=== PATIENT | male | born 1930 | race Caucasian/White ===

== ENCOUNTER 2016-04-15 14:47 | Inpatient (IN) | payer OTHER ==
--- NOTE | 2016-04-15 14:54 | EDPHY ---
H & P Time Seen by Provider: 04/15/16 14:53 HPI/ROS: CHIEF COMPLAINT: Chest pain. HISTORY OF PRESENT ILLNESS: The patient is an 85-year-old male who presents with intermittent left-sided chest pain for the past 2 months. Episodes last for a few minutes at a time and the pain is described as aching. The pain has been worse recently than usual. He denies alleviating or provoking factors. Today he had the first episode of pain at 0930 this morning and the latest episode started a few minutes ago. Pain is non-radiating. No fever, chills, shortness of breath, palpitations, vomiting, diarrhea, urinary complaints, headache, lightheadedness. On initial presentation to the ED, patient reports he has no medical problems and takes no medicine. A friend who was present states he has diabetes, but patient denies. PMH as outlined below from [facility] records REVIEW OF SYSTEMS: Full review of systems was negative except as described above. However, patient is an unreliable historian. PAST MEDICAL HISTORY: Diabetes, Stage III Kidney Disease, dementia, hemochromatosis, hypertension, prostate cancer, hyperlipidemia. SOCIAL HISTORY: Lives in [place], nonsmoker, moderate daily alcohol use. VITAL SIGNS: Reviewed by me GENERAL: Elderly, pleasant, resting comfortably in no respiratory distress. HEENT: Atraumatic. Eyes: No icterus, no injection. Mouth: moist mucous membranes. No erythema or lesions. Neck: supple with no adenopathy. LUNGS: Clear to auscultation bilaterally, no wheezes, rhonchi or rales. CARDIAC: Slightly irregular rhythm with occasional PVCs on monitor. no rubs, murmurs or gallops. ABDOMEN: Soft, nontender, nondistended, bowel sounds normal. BACK: No CVA tenderness. EXTREMITIES: No trauma. No edema. Range of motion is normal throughout. NEURO: Alert and oriented, grossly nonfocal. SKIN: Warm and dry, no rash. PSYCHIATRIC: Normal mentation, no agitation. Portions of this note were transcribed by a medical claims manager. I personally performed a history, physical exam, medical decision making, and confirmed accuracy of information the transcribed note. Source: Patient Exam Limitations: No limitations Constitutional: Initial Vital Signs Temperature (C) 36.4 C 04/15/16 15:08 Heart Rate 110 H 04/15/16 15:08 Respiratory Rate 18 04/15/16 15:08 Blood Pressure 185/99 H 04/15/16 15:08 O2 Sat (%) 95 04/15/16 15:08 O2 Delivery Mode Room Air Allergies/Adverse Reactions: No Known Allergies Allergy (Unverified 04/15/16 15:08) Home Medications: Medication Instructions Recorded Insulin NPH Hum/Reg Insulin Hm 25 unit SC DAILY 04/15/16 [Humulin 70-30 Vial] Medical Decision Making - Diagnostics EKG Interpretation: 12-LEAD EKG: Please see the full report in [facility]. My interpretation: Normal sinus rhythm with right bundle branch block. This is changed from his previous EKG as described by the [facility] at [facility]. Imaging: X-ray of the chest was obtained. I viewed the images myself on the PACS system. My interpretation of the images is: No pneumonia. No explanation for chest pain. The radiologist interpretation is pending at this time. I discussed the x-ray findings with the patient. ED Course/Re-evaluation: An IV was established and labs ordered. Chest x-ray, EKG obtained. 1513: I spoke to [facility] about this patient. They tell me he has a history of diabetes, Stage III kidney disease, dementia, hemochromatosis, hypertension, prostate cancer, and hyperlipidemia. They also tell me that the right bundle branch block seen on his EKG today is different than previous and they will fax his previous EKG to us. 1632: Spoke with [facility]. They tell me the patient last saw his doctor in July and has been picking up his medications as scheduled. They are comfortable with the patient being admitted here in the [facility]. Patient admitted to ICU to evaluate complaints of chest pain in the setting of DKA requiring insulin drip. Also will need close social service and shoe parts caser input, as it is unclear to me how the patient is managing on his own at home. Of concern, patients labs demonstrate a anion gap acidosis and a non-ion gap acidosis. Likely a DKA component to the patients electrolyte abnormalities. Insulin administered as well as fluid. Patient started on the DKA protocol. Differential Diagnosis: After history and physical examination, the differential for chest pain was considered, including but not limited to, myocardial ischemia, acute coronary syndrome, pulmonary embolus, chest wall pain, pleural inflammation and pulmonary infectious causes. Consult/Admit Bed Type: Dr [place], PCU - Data Points Laboratory Results: Laboratory Results 04/15/16 15:15 04/15/16 15:15 Medications Given: Discontinued Medications Aspirin (Aspirin) 324 mg PO EDNOW ONE Stop: 04/15/16 15:14 Last Admin: 04/15/16 15:30 Dose: 324 mg Enoxaparin Sodium (Lovenox) 40 mg SC DAILY DARIEN Stop: 10/13/16 08:59 Last Admin: 04/17/16 08:51 Dose: 40 mg Sodium Chloride (Ns) 1,000 mls @ 0 mls/hr IV ONCE ONE PRN Reason: Wide Open Stop: 04/15/16 16:47 Last Admin: 04/15/16 17:06 Dose: 1,000 mls Insulin Human Regular 100 unit / Miscellaneous Medication 1 ea/ Sodium Chloride 101 mls @ 4 mls/hr IV EDNOW ONE PRN Reason: Protocol Stop: 04/16/16 18:10 Last Admin: 04/15/16 22:29 Dose: Not Given Potassium Chloride (Potassium Cl 10 Meq (Premix)) 100 mls @ 100 mls/hr IV Q1H DARIEN Stop: 04/15/16 23:15 Last Admin: 04/15/16 20:00 Dose: 100 mls Insulin Glargine (Lantus Syringe) 25 units SC HS DARIEN Stop: 10/12/16 20:59 Last Admin: 04/16/16 21:48 Dose: 25 units Insulin Human Lispro (Humalog Lispro) 0 unit SC TIDMEAL ADRIEN PRN Reason: Protocol Stop: 10/13/16 07:59 Last Admin: 04/16/16 08:06 Dose: 1 unit Insulin Human Lispro (Humalog Lispro) 0 unit SC TIDMEAL DARIEN PRN Reason: Protocol Stop: 10/13/16 11:59 Last Admin: 04/17/16 12:02 Dose: 8 unit Insulin Human Regular (Humulin R) 10 unit IVP EDNOW ONE Stop: 04/15/16 16:47 Last Admin: 04/15/16 17:06 Dose: 10 units Potassium Chloride (Klor-Con) 10 meq PO ONCE ONE PRN Reason: Protocol Stop: 04/16/16 21:00 Last Admin: 04/16/16 21:48 Dose: 10 meq Departure - Departure Disposition: [facility] Acute Clinical Impression: Chest pain Qualifiers: Chest pain type: unspecified Qualified Code(s): R07.9 - Chest pain, unspecified Dementia Qualifiers: Dementia type: unspecified type Dementia behavioral disturbance: without behavioral disturbance Qualified Code(s): F03.90 - Unspecified dementia without behavioral disturbance Diabetes Qualifiers: Diabetes mellitus type: type 2 Diabetes mellitus complication status: with ketoacidosis Diabetes mellitus buttermaker insulin use: with buttermaker use Condition: Fair Report Scribed for: Sanjuanita Turner Report Scribed by: Dwain Jimenez Date of Report: 04/15/16 Time of Report: 14:56
--- NOTE | 2016-04-15 15:06 | CPEKG ---
Heart Rate: 104 RR Interval: 577 P-R Interval: 148 QRSD Interval: 142 QT Interval: 404 QTC Interval: 532 P Benton: 235 QRS Benton: -63 T Wave Benton: 43 EKG Severity - ABNORMAL ECG - EKG Impression: SINUS OR ECTOPIC ATRIAL TACHYCARDIA EKG Impression: VENTRICULAR PREMATURE COMPLEX EKG Impression: RIGHT BUNDLE BRANCH BLOCK EKG Impression: BORDERLINE INFERIOR Q WAVES Electronically Signed By: Sanjuanita Turner 15-Apr-2016 17:53:06
[2016-04-15] MEDS ORDERED: ASPIRIN 81 MG CHEWABLE TAB PO ONE (15:13)
[2016-04-15 15:49] LABS: ALANINE AMINOTRANSFERASE 27 IU/L (21-72); ALBUMIN 4.1 g/dL (3.5-5.0); ALKALINE PHOSPHATASE 73 IU/L (38-126); ANION GAP 17 mEq/L (8-16); ASPARTATE AMINOTRANSFERASE 21 IU/L (17-59); BILIRUBIN-CONJUGATED 0.4 mg/dL (0.0-0.5); BILIRUBIN-UNCONJUGATED 0.6 mg/dL (0.0-1.1); CALCIUM 8.9 mg/dL (8.5-10.4); CARBON DIOXIDE 14 mEq/l (22-31); CHLORIDE 108 mEq/L (97-110); CREATININE 1.1 mg/dL (0.7-1.3); GLOMERULAR FILTRATION RATE > 60; GLUCOSE 461 mg/dL (70-100); POTASSIUM 3.9 mEq/L (3.5-5.2); SODIUM 139 mEq/L (134-144); TOTAL PROTEIN 7.3 g/dL (6.3-8.2)
[2016-04-15 16:00] LABS: TROPONIN I < 0.012 ng/mL (0-0.034)
[2016-04-15 16:24] LABS: % IMMATURE GRANULYOCYTES 0.4 % (0.0-1.1); ABSOLUTE IMMATURE GRANULOCYTES 0.02 10^3/uL (0.00-0.10); ADD DIFF? NO; ADD MORPH? YES; ADD SCAN? NO; ATYPICAL LYMPHOCYTE FLAG 10 (0-99); FRAGMENT RBC FLAG 0 (0-99); HEMATOCRIT 38.9 % (40.0-51.0); LEFT SHIFT FLG 0 (0-99); MEAN CELL HEMOGLOBIN 33.3 pg (27.9-34.1); MEAN CELL VOLUME 88.2 fL (81.5-99.8); MEAN PLATELET VOLUME 9.8 fL (8.7-11.7); PLATELET CLUMPS FLAG 20 (0-99); PLATELET COUNT 168 10^3/uL (150-400); RED BLOOD CELL COUNT 4.41 10^6/uL (4.40-6.38); RED CELL DISTRIBUTION WIDTH 12.5 % (11.5-15.2)
[2016-04-15 16:35] LABS: LIPEMIA HEMOLYSIS FLAG 100 (0-99)
[2016-04-15 16:36] LABS: HEMOGLOBIN 14.7 g/dL (13.7-17.5)
[2016-04-15 16:37] LABS: MEAN CELL HEMOGLOBIN CONCENTR. 37.8 g/dL (32.4-36.7)
[2016-04-15] MEDS ORDERED: NS 1,000 ML IV ONE (16:46)
[2016-04-15] MEDS ORDERED: INSULIN REGULAR HUMAN 100 UNIT/ML IVP ONE (16:46)
[2016-04-15 16:49] LABS: B-HYDROXYBUTYRATE 0.64 mmol/L (0.02-0.27)
[2016-04-15] MEDS ORDERED: INSULIN REGULAR HUMAN 100 UNIT, COSIGN. REQUIRED 1 EA in NS 100 ML IV ONE (16:56)
[2016-04-15] MEDS ORDERED: ONDANSETRON DISINTEGRATING 4 MG TAB PO PRN (17:37)
[2016-04-15] MEDS ORDERED: ACETAMINOPHEN 325 MG TAB PO PRN (17:37)
[2016-04-15 17:53] LABS: MACROCYTES 1+; MICROCYTES 1+; PLATELET ESTIMATE ADEQUATE (ADEQ)
[2016-04-15 17:55] LABS: ROULEAUX PRESENT
[2016-04-15 18:01] LABS: HEMOGLOBIN A1C 7.9 % (4.0-6.0)
[2016-04-15] MEDS ORDERED: D5W 1,000 ML IV SCH (18:29)
[2016-04-15] MEDS ORDERED: INSULIN REGULAR HUMAN 100 UNIT in NS 100 ML IV SCH (18:29)
[2016-04-15] MEDS ORDERED: D50W 25 GM/50 ML SYR IVP PRN (18:29)
[2016-04-15] MEDS ORDERED: INSULIN REGULAR HUMAN 100 UNIT/ML IVP PRN (18:29)
--- NOTE | 2016-04-15 18:31 | GHP ---
[f rep st] HISTORY AND PHYSICAL DATE OF ADMISSION: 04/15/2016 CHIEF COMPLAINT: Chest pain. HISTORY OF PRESENT ILLNESS: This is an 85-year-old man, who is a [facility] patient, who presents with a chief complaint of chest pain. He has some dementia, which makes history taking slightly difficul t. He tells me this has been intermittent, present for 2 months, left-sided stabbing sensation whic h lasts for about 30 seconds. This occurs about every other day. Not associated with any nausea, v omiting, diaphoresis, shortness of breath. He is still able to walk around the block without gettin g short of breath. It is a little unclear how he ended up here, though he tells me he was seen at a emergency room, "cleared there," then called later by another physician and told to come to the em ergency department. Thus, he presents. He has no history of cardiac disease. On admission, it was noted that his glucose was very high. He tells me that he takes 25 units of in sulin every day. He has a home nurse who comes about once a week to follow up on his insulin. He b elieves that he has been compliant, although he may have missed some doses. He denies any headache, nausea, vomiting, fever, diarrhea or other infective symptoms. PAST MEDICAL/SURGICAL HISTORY: 1. Dementia. 2. Diabetes mellitus type 2. 3. Hemochromatosis. 4. Hypertension. 5. Hyperlipidemia. 6. Prostate cancer. MEDICATIONS: Insulin 70/30, 25 units subcu daily. ALLERGIES: No known drug allergies. FAMILY HISTORY: No diabetes. SOCIAL HISTORY: He owns a 4-unit apartment complex. He lives in 1 of those units. He drinks occas ionally. He does not smoke. REVIEW OF SYSTEMS: A 10-point review of systems is conducted and is negative except per HPI. PHYSICAL EXAMINATION: VITAL SIGNS: Blood pressure 185/99, heart rate 110, respiration rate 18, sat urating 95% on room air. Temperature is 36.4. GENERAL: The patient is a pleasant man who is sitti ng in bed comfortably in no acute distress. HEENT: Shows him to be normocephalic, not traumatic. CARDIOVASCULAR: Exam shows regular rate and rhythm. There are no murmurs, rubs, or gallops. PULMO NARY: Shows his lungs to be clear to auscultation bilaterally. ABDOMEN: Soft, nontender, nondiste nded. SKIN: Exam shows no rash. : Exam shows the Harris. NEUROLOGIC: Exam shows him to be brooke rt and oriented x3 with some prompting. He has a grossly nonfocal exam. PSYCHIATRIC: Exam shows a normal mood and affect. EXTREMITIES: Exam shows no lower extremity edema. LABORATORY DATA: CBC is unremarkable. D-dimer 0.49, bicarb is 14. Anion gap is 17. Glucose is 46 1. His beta hydroxybutyrate is 0.64. DATA: 1. I personally viewed and interpreted his chest x-ray. This shows aortic calcifications, however, there was nothing acute. 2. ECG, which I also personally viewed and interpreted, shows right bundle branch block, as well as a 1st degree AV block. I reviewed an old EKG from [facility]. He did not have a right bundle branch b lock on that EKG. IMPRESSION AND PLAN: 85-year-old man presents acidotic, as well as chest pain. 1. Anion and non-anion gap metabolic acidosis: Likely component of diabetic ketoacidosis. May als o have renal tubular acidosis causing somewhat of a non-anion gap. I think it is appropriate to laura at him for DKA at this point with IV insulin. In terms of etiology of this, most likely this is non compliance. In the setting of chest pain, difficult to exclude ischemia as well. I have checked an A1c which may help to elucidate that. 2. Chest pain: He has multiple cardiovascular risk factors. He has a new right bundle branch bloc k. I have written to repeat EKG in the morning to see if the right bundle branch block resolves when his acidosis improves. I think he deserves inpatient risk stratification, I have not ordered this, as I would prefer to allow his DKA to resolve first. I have trended troponins at this point. 3. Dementia: Unclear exactly the degree of this; however, it does make getting a history somewhat difficult. 4. History of hemochromatosis. 5. Hypertension. 6. Hyperlipidemia. 7. Code status: He would like to be full code. He would like his daughter to be his MD JAYY. 8. VTE risk: He is high risk. I have ordered him Lovenox 40 mg daily as prophylaxis. /[id number]/MODL
[2016-04-15] MEDS ORDERED: PROTOCOL MAGNESIUM 1 DOSE IV PRN (18:32)
[2016-04-15] MEDS ORDERED: PROTOCOL POTASSIUM 1 DOSE MISC PRN (18:32)
[2016-04-15] MEDS ORDERED: POTASSIUM Cl (KCl) 100 ML IV SCH (19:16)
[2016-04-15 19:59] LABS: ANION GAP 11 mEq/L (8-16); CARBON DIOXIDE 18 mEq/l (22-31); CHLORIDE 113 mEq/L (97-110); GLOMERULAR FILTRATION RATE > 60; GLUCOSE 129 mg/dL (70-100); POTASSIUM 3.7 mEq/L (3.5-5.2); SODIUM 142 mEq/L (134-144)
[2016-04-15] MEDS: INSULIN GLARGINE 100 UNITS/ML SYRINGE SC SCH (21:44)
[2016-04-16 00:35] LABS: POTASSIUM 3.8 mEq/L (3.5-5.2)
[2016-04-16 00:51] LABS: TROPONIN I < 0.012 ng/mL (0-0.034)
[2016-04-16 06:11] LABS: % IMMATURE GRANULYOCYTES 0.4 % (0.0-1.1); ABSOLUTE IMMATURE GRANULOCYTES 0.02 10^3/uL (0.00-0.10); ADD DIFF? NO; ADD MORPH? NO; ADD SCAN? NO; ATYPICAL LYMPHOCYTE FLAG 0 (0-99); FRAGMENT RBC FLAG 0 (0-99); HEMATOCRIT 36.5 % (40.0-51.0); HEMOGLOBIN 13.3 g/dL (13.7-17.5); LEFT SHIFT FLG 0 (0-99); LIPEMIA HEMOLYSIS FLAG 90 (0-99); MEAN CELL HEMOGLOBIN 32.5 pg (27.9-34.1); MEAN CELL HEMOGLOBIN CONCENTR. 36.4 g/dL (32.4-36.7); MEAN CELL VOLUME 89.2 fL (81.5-99.8); MEAN PLATELET VOLUME 9.2 fL (8.7-11.7); PLATELET CLUMPS FLAG 20 (0-99); PLATELET COUNT 161 10^3/uL (150-400); RED BLOOD CELL COUNT 4.09 10^6/uL (4.40-6.38); RED CELL DISTRIBUTION WIDTH 12.7 % (11.5-15.2)
[2016-04-16 06:21] LABS: ALANINE AMINOTRANSFERASE 28 IU/L (21-72); ALBUMIN 3.5 g/dL (3.5-5.0); ALKALINE PHOSPHATASE 47 IU/L (38-126); ANION GAP 10 mEq/L (8-16); ASPARTATE AMINOTRANSFERASE 22 IU/L (17-59); BILIRUBIN,TOTAL 1.2 mg/dL (0.1-1.4); CALCIUM 8.6 mg/dL (8.5-10.4); CARBON DIOXIDE 18 mEq/l (22-31); CHLORIDE 114 mEq/L (97-110); CREATININE 0.9 mg/dL (0.7-1.3); GLOMERULAR FILTRATION RATE > 60; GLUCOSE 160 mg/dL (70-100); POTASSIUM 3.8 mEq/L (3.5-5.2); SODIUM 142 mEq/L (134-144); TOTAL PROTEIN 6.4 g/dL (6.3-8.2)
[2016-04-16] MEDS ORDERED: INSULIN LISPRO 100 UNIT/ML SC SCH (08:00)
[2016-04-16] MEDS: ENOXAPARIN 40 MG/0.4 ML SYR SC SCH (08:06)
--- NOTE | 2016-04-16 09:14 | CPEKG ---
Heart Rate: 85 RR Interval: 706 P-R Interval: 236 QRSD Interval: 140 QT Interval: 404 QTC Interval: 481 P Kenton: 24 QRS Kenton: 14 T Wave Kenton: 4 EKG Severity - ABNORMAL ECG - EKG Impression: SINUS RHYTHM EKG Impression: FIRST DEGREE AV BLOCK EKG Impression: RIGHT BUNDLE BRANCH BLOCK EKG Impression: PROBABLE INFERIOR INFARCT, AGE INDETERMINATE Electronically Signed By: Arturo Xiao 16-Apr-2016 10:52:29
[2016-04-16] MEDS ORDERED: D50W 25 GM/50 ML SYR IVP PRN (11:45)
[2016-04-16] MEDS: INSULIN LISPRO 100 UNIT/ML SC SCH ×2 (12:01→17:50)
--- NOTE | 2016-04-16 15:18 | HOSPPROG ---
Hospitalist Progress Note Assessment/Plan: * mild DKA * resolved * probably related to noncompliance * will check a UA * will watch blood sugars another day * type 2 diabetes * continue insulin * dementia * chest pain * resolved * troponins are negative * disposition * probably needs more care than is getting. His daughter is deciding on taking him home with her. She lives close to [place]. versus home health Subjective: no new complaints. Did have some left chest pain in the lateral wall but this has resolved Objective: Vital Signs Temp Pulse Resp BP Pulse Ox 36.4 C 83 16 136/82 H 95 04/16/16 12:45 04/16/16 12:45 04/16/16 12:45 04/16/16 12:45 04/16/16 12:45 Laboratory Results 04/16/16 05:45 04/16/16 05:45 04/15/16 04/16/16 04/17/16 05:59 05:59 05:59 Intake Total 1800 Balance 1800 - Physical Exam Constitutional: no apparent distress, appears nourished, not in pain Eyes: anicteric sclera, EOMI Ears, Nose, Mouth, Throat: moist mucous membranes, hearing normal, ears appear normal Cardiovascular: regular rate and rhythym, no murmur, rub, or gallop Respiratory: no respiratory distress, no rales or rhonchi, clear to auscultation Skin: warm Neurologic: AAOx3 ( nose that is in [place] and the year. Slightly off on some questions), other ICD10 Worksheet Patient Problems: Problems Problem Status Onset Chest pain Acute
[2016-04-16 18:46] LABS: COLOR YELLOW; LEUKOCYTE ESTERASE,URINE NEGATIVE (NEGATIVE); NITRITE,URINE NEGATIVE (NEGATIVE)
[2016-04-16] MEDS ORDERED: PROTOCOL POTASSIUM 1 DOSE MISC PRN (19:43)
[2016-04-16 20:58] LABS: POTASSIUM 3.9 mEq/L (3.5-5.2)
[2016-04-16] MEDS ORDERED: POTASSIUM CL 10 MEQ TAB PO ONE (20:59)
[2016-04-16] MEDS: INSULIN GLARGINE 100 UNITS/ML SYRINGE SC SCH (21:48)
[2016-04-17 05:45] LABS: ANION GAP 10 mEq/L (8-16); CALCIUM 9.1 mg/dL (8.5-10.4); CARBON DIOXIDE 18 mEq/l (22-31); CHLORIDE 111 mEq/L (97-110); CREATININE 0.9 mg/dL (0.7-1.3); GLOMERULAR FILTRATION RATE > 60; GLUCOSE 163 mg/dL (70-100); MAGNESIUM 1.9 mg/dL (1.6-2.3); POTASSIUM 3.9 mEq/L (3.5-5.2); SODIUM 139 mEq/L (134-144)
[2016-04-17 07:35] VITALS: BP 144/84; PULSE 72; RESP 12; TEMP 98.1; O2SAT 96
[2016-04-17] MEDS: ENOXAPARIN 40 MG/0.4 ML SYR SC SCH (08:51)
[2016-04-17] MEDS: INSULIN LISPRO 100 UNIT/ML SC SCH ×2 (08:51→12:02)
--- NOTE | 2016-04-17 10:54 | PDIAF ---
- Diagnosis Diagnosis: hyperglycemia Code Status: Full Code - Medication Management Discharge Medications: Medications to Continue on Transfer Insulin NPH Hum/Reg Insulin Hm [Humulin 70-30 Vial] 25 unit SC DAILY 04/15/16 [ Last Taken 04/15/16] Discharge Medications: Refer to the Discharge Home Medication list for PRN reason. - Orders Services needed: Home Care, Registered Nurse, Occupational Therapy Home Care Face to Face: I certify that this patient was under my care and that I had the required [id number] encounter meeting the encounter requirements on the discharge day. My findings support the fact that the patient is homebound as defined in CMS Chapter 7 Medicare Benefits Manual 30.1.1, The condition of the patient is such that there exists a normal inability to leave home and consequently, leaving home would require a considerable and taxing effort. - Follow Up Care Current Providers and Referrals: KARLEE BETTS [Primary Care Provider] - As per Instructions
--- NOTE | 2016-04-17 14:37 | GDS ---
DISCHARGE DIAGNOSES: 1. Very mild diabetic ketoacidosis. 2. Hyperglycemia. 3. Type 2 diabetes, uncontrolled. 4. Dementia. HISTORY: This is an 85-year-old male with a history of type 2 diabetes and dementia. He presented with some vague chest pain and found to be hyperglycemic with a slight anion gap metabolic acidosis. HOSPITAL COURSE: Patient was admitted and given insulin. His acidosis resolved. His blood sugars on his home regimen were okay here in the hospital. Unclear if he has been taking his insulin at [facility]. His hemoglobin A1c is not too bad at 7.9. Discussions were had with the daughter and Case Management in terms of appropriateness of him living at home. He does have home health that comes in 2 hours a day. At this point, she wants to try hi m back at home, and if not successful, he will move in with her. FOLLOWUP INSTRUCTIONS: He is instructed to follow up his [place] primary care doctor as soon as lincoln oropeza to see if any further adjustments in insulin would be indicated. /[id number]/MODL
== END 2016-04-17 12:35 | disposition home health service (06) | DRG 639 ==
LOC: F2N 18:16 → F3E 04-16 12:49
PROVIDERS: ADMIT Internal Medicine; ATTEND Internal Medicine
DX: E13.10 Other specified diabetes mellitus with ketoacidosis without coma (principal); E11.65 Type 2 diabetes mellitus with hyperglycemia; R07.9 Chest pain, unspecified; E11.22 Type 2 diabetes mellitus with diabetic chronic kidney disease; N18.3 Chronic kidney disease, stage 3 (moderate); I12.9 Hypertensive chronic kidney disease with stage 1 through stage 4 chronic kidney disease, or unspecified chronic kidney disease; E78.5 Hyperlipidemia, unspecified; C61 Malignant neoplasm of prostate; F03.90 Unspecified dementia, unspecified severity, without behavioral disturbance, psychotic disturbance, mood disturbance, and anxiety; E83.119 Hemochromatosis, unspecified; I44.0 Atrioventricular block, first degree
CPT/HCPCS: 82947-QW; 97162-GP; J1650; J1815